=== PATIENT | male | born 2000 | race Hispanic/Latino ===

== ENCOUNTER 2022-09-01 16:52 | Emergency (ER) | payer OTHER, SELFPAY ==
[2022-09-01] MEDS ORDERED: HYDROcodone/Acetaminophen 5/325 mg Tablet ONE (17:57)
[2022-09-01] MEDS ORDERED: Boostrix 0.5 ML (Tdap) VIAL (>/=7 yrs of age) ONE (18:27)
== END 2022-09-01 18:30 | disposition home or self-care (01) ==
LOC: BURERS 16:52
DX: S90.02XA Contusion of left ankle, initial encounter (principal); W08.XXXA Fall from other furniture, initial encounter; Y99.0 Civilian activity done for income or pay
CPT/HCPCS: 90471; 90715